=== PATIENT | male | born 1970 | race Two or more races ===

== ENCOUNTER 2021-03-03 08:10 | Inpatient (IN) | payer OTHER ==
[~2021-03-03] VITALS: Ht 167.6 cm; Wt 109.8 kg
[~2021-03-03 08:10] MED LIST: LOSARTAN-HCTZ1 EAC2 PO
[2021-03-05] MEDS ORDERED: PERCOCET 5-3251 EACH PO (12:18)
== END 2021-03-05 13:40 | disposition home or self-care (01) | DRG 349 ==
LOC: CIR.AMB 08:10 → O/R 14:03 → SURH 14:03
PROVIDERS: ADMIT Surgery; ATTEND Surgery
PROC: 0D8R0ZZ Division of Anal Sphincter, Open Approach (ICD-10-PCS; 2021-03-03)
PROC: 0DBP7ZZ Excision of Rectum, Via Natural or Artificial Opening (ICD-10-PCS; 2021-03-03)
PROC: 0DBR0ZZ Excision of Anal Sphincter, Open Approach (ICD-10-PCS; principal; 2021-03-03 09:15)
DX: K60.1 Chronic anal fissure (principal); K62.89 Other specified diseases of anus and rectum; K62.4 Stenosis of anus and rectum; K60.3 Anal fistula; I10 Essential (primary) hypertension